=== PATIENT | female | born 1970 | race Caucasian/White ===

== ENCOUNTER → 2018-09-29 | Outpatient (CLI) | payer OTHER ==
--- NOTE | 2018-09-29 11:51 | KCIC ---
STUDY: MRI of the right elbow without contrast INDICATION: Right elbow contusion. Pain located posteriorly. COMPARISON: None. TECHNIQUE: Multiplanar MR imaging of the right elbow performed without the use of intravenous or intra-articular contrast. FINDINGS: Bones/cartilage: No acute fracture or suspicious marrow signal abnormality. No advanced elbow joint arthrosis. No full-thickness chondral defect identified. Musculotendinous: The triceps is intact. The biceps brachii and brachialis tendons are intact. The common flexor origin is intact. Mild common extensor tendinosis. No focal muscular atrophy or significant edema. Ligaments: The radial and ulnar collateral ligamentous structures are intact. Nerves: Unremarkable signal and configuration of the ulnar nerve. Miscellaneous: Mild subcutaneous edema at the medial elbow overlying the medial epicondyle. Minimal subcutaneous edema along the proximal ulna. No significant elbow joint effusion. No olecranon bursitis. IMPRESSION: 1. No acute fracture or marrow contusion. Mild subcutaneous edema along the medial epicondyle and trace subcutaneous edema along the proximal ulna. 2. Mild common extensor tendinosis without discrete tear. Electronically signed by: KATIA LOPEZ MD (09/29/2018 11:48 AM) [id number]
== END | disposition home or self-care (01) ==
LOC: KCIC MRI 08:59
PROVIDERS: ATTEND Family Medicine
DX: M77.01 Medial epicondylitis, right elbow (principal); R22.31 Localized swelling, mass and lump, right upper limb; M77.8 Other enthesopathies, not elsewhere classified; Z98.51 Tubal ligation status
CPT/HCPCS: 73221